=== PATIENT | female | born 1930 | race Caucasian/White ===

== ENCOUNTER 2017-11-29 19:59 | Inpatient (IN) | payer MEDICARE ==
[~2017-11-29] VITALS: Ht 152.4 cm; Wt 72.5 kg
[2017-11-29 20:36] LABS: BASOPHILS % (AUTO) 0.4 % (0.0-5.0); HEMATOCRIT 41.9 % (36-48); LYMPHOCYTES % (AUTO) 3.7 % (21.0-51.0); MEAN CORPUSCULAR HEMOGLOBIN 30.5 pg (27.0-33.0); MEAN CORPUSCULAR HGB CONC 33.8 g/dL (32.0-36.0); MEAN CORPUSCULAR VOLUME 90.3 fL (79-99); MONOCYTES % (AUTO) 1.9 % (3.0-13.0); NUCLEATED RED BLOOD CELLS 0.1 % (0.0-0.19); PLATELET COUNT (AUTO) 265 K/uL (130-400); RED BLOOD CELL COUNT(AUTO) 4.64 MIL/uL (4.00-5.50); RED CELL DISTRIBUTION WIDTH 12.7 % (11.0-15.5); WHITE BLOOD COUNT (AUTO) 16.4 K/uL (4.8-10.8)
[2017-11-29] MEDS ORDERED: ASPIRIN 325 MG TABLET ONE (20:40)
[2017-11-29] MEDS ORDERED: LEVOFLOXACIN 750 MG/D5W 150 ML 150 ML ONE (20:40)
[2017-11-29 20:47] LABS: APPEARANCE,URINE Clear (CLEAR); BILIRUBIN,URINE Negative (NEGATIVE); COLOR,URINE Yellow (YELLOW); GLUCOSE, URINE (UA) Negative (NEGATIVE); KETONES,URINE Negative (NEGATIVE); LEUKOCYTE ESTERASE ,URINE Negative (NEGATIVE); NITRATE,URINE Negative (NEGATIVE); OCCULT BLOOD,URINE Negative (NEGATIVE); PROTEIN,URINE Negative (NEGATIVE)
[2017-11-29 20:55] LABS: INR 0.98 (0.85-1.15); PARTIAL THROMBOPLASTIN TIME 26.4 SEC (26.3-35.5); PROTHROMBIN TIME 10.3 SEC (9.6-11.6)
[2017-11-29] MEDS ORDERED: IPRATROPIUM/ALBUTEROL SULFATE 3 ML SOLUTION IH ONE (21:05)
[2017-11-29 21:06] LABS: ALBUMIN 3.4 g/dL (3.5-5.0); BILIRUBIN,TOTAL 0.6 mg/dL (0.2-1.0); CREATININE 0.9 mg/dL (0.5-1.5); TOTAL PROTEIN, SERUM 7.6 g/dL (6.0-8.3)
[2017-11-29 21:09] LABS: POTASSIUM 2.6 mmol/L (3.5-5.1)
[2017-11-29 21:31] LABS: CREATINE KINASE MB 2.1 ng/mL (0.5-3.6)
[2017-11-29] MEDS ORDERED: POTASSIUM CHLORIDE 10% ELIXIR 20 MEQ/15 ML UDCUP ONE (21:40)
[2017-11-29 22:30] VITALS: BP 126/56
[2017-11-29] MEDS ORDERED: ACETAMINOPHEN 325 MG TAB PO PRN (23:00)
[2017-11-29] MEDS ORDERED: ONDANSETRON HCL MDV 20ML 2 MG/ML VIAL IV PRN (23:00)
[2017-11-29] MEDS ORDERED: POTASSIUM CHLORIDE 20MEQ/100ML 100 ML IV PRN (23:00)
[2017-11-29] MEDS ORDERED: LIDOCAINE HCL-MPF 1% 2ML VIAL IVP PRN (23:00)
[2017-11-29] MEDS ORDERED: POTASSIUM CHLORIDE 10% ELIXIR 20 MEQ/15 ML UDCUP PO PRN (23:00)
[2017-11-29] MEDS: LEVOFLOXACIN 500 MG/D5W 100 ML 100 ML IV SCH (23:00)
[2017-11-30] MEDS ORDERED: OMEP40CA37 PO (00:24)
[2017-11-30] MEDS ORDERED: CALC-866 PO (00:24)
[2017-11-30] MEDS ORDERED: PRAV40TA3 PO (00:24)
[2017-11-30] MEDS ORDERED: DULO60CA63 PO (00:24)
[2017-11-30] MEDS ORDERED: AMLO5TAB7 PO (00:24)
[2017-11-30] MEDS ORDERED: CHLO25TA3 PO (00:24)
[2017-11-30] MEDS ORDERED: POTA10TA14 PO (00:24)
[2017-11-30] MEDS: SODIUM CHLORIDE 0.9% 1000ML 1,000 ML IV SCH ×4 (01:21→22:45)
[2017-11-30] MEDS: MAGNESIUM 2GM PREMIX 50ML 50 ML IV PRN (01:21)
[2017-11-30] MEDS: METHYLPREDNISOLONE SOD SUCC 125MG/2ML VIAL IVP SCH ×2 (02:04→09:51)
[2017-11-30] MEDS ORDERED: SODIUM CHLORIDE 3% FOR INHALATION 4 ML/AMP VIAL.NEB IH ONE (02:21)
[2017-11-30] MEDS: IPRATROPIUM/ALBUTEROL SULFATE 3 ML SOLUTION IH SCH ×6 (02:30→21:41)
[2017-11-30 04:00] VITALS: BP 139/64
[2017-11-30 05:46] LABS: ALBUMIN 2.7 g/dL (3.5-5.0); BILIRUBIN,TOTAL 0.8 mg/dL (0.2-1.0); MAGNESIUM 2.1 mg/dL (1.80-2.40); POTASSIUM 3.5 mmol/L (3.5-5.1); TOTAL PROTEIN, SERUM 6.5 g/dL (6.0-8.3)
[2017-11-30 05:50] LABS: HEMATOCRIT 36.7 % (36-48); MEAN CORPUSCULAR HEMOGLOBIN 30.2 pg (27.0-33.0); MEAN CORPUSCULAR HGB CONC 33.4 g/dL (32.0-36.0); MEAN CORPUSCULAR VOLUME 90.3 fL (79-99); PLATELET COUNT (AUTO) 222 K/uL (130-400); RED BLOOD CELL COUNT(AUTO) 4.07 MIL/uL (4.00-5.50); WHITE BLOOD COUNT (AUTO) 23.4 K/uL (4.8-10.8)
[2017-11-30 06:17] LABS: BAND NEUTROPHILS % (MANUAL) 26 % (0-2); LYMPHOCYTES % (MANUAL) 1 % (22-44); MAN.DIFF COMMENT-IMPRESSION MANUAL DIFFERENTIAL; METAMYELOCYTES % 2 % (0-0); MONOCYTES % (MANUAL) 3 % (2-9); MYELOCYTES % 1 % (0-0); PLATELET MORPHOLOGY COMMENT ADEQUATE; SEGMENTED NEUTROPHILS % 67 % (40-70)
[2017-11-30 08:00] VITALS: BP 125/61
[2017-11-30] MEDS: BACITRACIN 3.5 GM TUBE OS SCH ×3 (09:00→22:51)
[2017-11-30] MEDS: ENOXAPARIN SODIUM 40 MG/0.4 ML SYRINGE SQ SCH (09:51)
[2017-11-30] MEDS: PANTOPRAZOLE SODIUM 40 MG TABLET.DR PO SCH (09:51)
[2017-11-30] MEDS ORDERED: IOHEXOL-350 75 ML VIAL IV ONE (10:43)
[2017-11-30 12:00] VITALS: BP 144/81
[2017-11-30] MEDS: POTASSIUM CHLORIDE 20 MEQ ERTAB PO PRN ×2 (12:42→22:45)
[2017-11-30 16:00] VITALS: BP 152/71
[2017-11-30] MEDS: METOCLOPRAMIDE 5 MG TABLET PO SCH (16:46)
[2017-11-30 20:00] VITALS: BP 132/77
[2017-11-30] MEDS: POTASSIUM CHLORIDE 10 MEQ/TAB.SA PO SCH (20:46)
[2017-11-30] MEDS ORDERED: PREDNISONE 20 MG TABLET PO SCH (21:00)
[2017-11-30] MEDS ORDERED: PNEUMOCOCCAL VACCINE POLYVALENT 0.5 ML/VIAL [PPV] IM ONE (22:00)
[2017-11-30] MEDS: LEVOFLOXACIN 500 MG/D5W 100 ML 100 ML IV SCH (22:45)
[2017-11-30 23:15] VITALS: BP 152/73
[2017-12-01] MEDS: IPRATROPIUM/ALBUTEROL SULFATE 3 ML SOLUTION IH SCH ×5 (02:15→23:15)
[2017-12-01] MEDS: SODIUM CHLORIDE 0.9% 1000ML 1,000 ML IV SCH (03:52)
[2017-12-01 04:00] VITALS: BP 157/75
[2017-12-01 04:38] LABS: BASOPHILS % (AUTO) 0.6 % (0.0-5.0); HEMATOCRIT 34.6 % (36-48); LYMPHOCYTES % (AUTO) 2.4 % (21.0-51.0); MEAN CORPUSCULAR HEMOGLOBIN 30.3 pg (27.0-33.0); MEAN CORPUSCULAR HGB CONC 33.7 g/dL (32.0-36.0); MEAN CORPUSCULAR VOLUME 90.1 fL (79-99); MONOCYTES % (AUTO) 2.6 % (3.0-13.0); NEUTROPHILS % (AUTO) 94.4 % (40.0-77.0); PLATELET COUNT (AUTO) 229 K/uL (130-400); RED BLOOD CELL COUNT(AUTO) 3.85 MIL/uL (4.00-5.50); RED CELL DISTRIBUTION WIDTH 13.1 % (11.0-15.5); WHITE BLOOD COUNT (AUTO) 20.7 K/uL (4.8-10.8)
[2017-12-01 04:59] LABS: ALBUMIN 2.7 g/dL (3.5-5.0); BILIRUBIN,TOTAL 0.3 mg/dL (0.2-1.0); MAGNESIUM 1.8 mg/dL (1.80-2.40); TOTAL PROTEIN, SERUM 6.7 g/dL (6.0-8.3)
[2017-12-01 05:04] LABS: POTASSIUM 2.8 mmol/L (3.5-5.1)
[2017-12-01] MEDS: MAGNESIUM 2GM PREMIX 50ML 50 ML IV PRN (05:36)
[2017-12-01] MEDS: POTASSIUM CHLORIDE 20 MEQ ERTAB PO PRN ×4 (05:37→23:12)
[2017-12-01] MEDS: METOCLOPRAMIDE 5 MG TABLET PO SCH ×3 (05:37→17:08)
[2017-12-01] MEDS ORDERED: PNEUMOCOCCAL VACCINE POLYVALENT 0.5 ML/VIAL [PPV] IM SCH (06:45)
[2017-12-01 07:00] VITALS: BP 151/113
[2017-12-01] MEDS: CHOLECALCIFEROL 5000 UNIT PO SCH (09:00)
[2017-12-01] MEDS: AMLODIPINE BESYLATE 5 MG TAB PO SCH (10:49)
[2017-12-01] MEDS: HYDROCHLOROTHIAZIDE 25 MG TABLET PO SCH (10:49)
[2017-12-01] MEDS: DULOXETINE HCL 30 MG CAP PO SCH (10:49)
[2017-12-01] MEDS: PANTOPRAZOLE SODIUM 40 MG TABLET.DR PO SCH (10:49)
[2017-12-01] MEDS: ENOXAPARIN SODIUM 40 MG/0.4 ML SYRINGE SQ SCH (10:50)
[2017-12-01] MEDS: POTASSIUM CHLORIDE 10 MEQ/TAB.SA PO SCH ×2 (10:53→20:53)
[2017-12-01] MEDS: SIMVASTATIN 20 MG TABLET PO SCH (10:53)
[2017-12-01 11:14] VITALS: BP 152/63
[2017-12-01] MEDS: BACITRACIN 3.5 GM TUBE OS SCH ×2 (12:43→20:53)
[2017-12-01 15:34] VITALS: BP 176/89
[2017-12-01] MEDS ORDERED: PNEUMOCOCCAL VACCINE POLYVALENT 0.5 ML/VIAL [PPV] ONE (17:44)
[2017-12-01] MEDS ORDERED: ZOLPIDEM TARTRATE 5 MG TAB PO PRN (19:45)
[2017-12-01 19:51] VITALS: BP 135/67
[2017-12-01] MEDS ORDERED: PREDNISONE 20 MG TABLET PO SCH (21:00)
[2017-12-01] MEDS: LEVOFLOXACIN 500 MG/D5W 100 ML 100 ML IV SCH (23:11)
[2017-12-01 23:33] VITALS: BP 164/74
[2017-12-02 03:32] VITALS: BP 156/77
[2017-12-02] MEDS: POTASSIUM CHLORIDE 20 MEQ ERTAB PO PRN (04:41)
[2017-12-02 05:19] LABS: BASOPHILS % (AUTO) 0.2 % (0.0-5.0); HEMATOCRIT 33.9 % (36-48); LYMPHOCYTES % (AUTO) 13.2 % (21.0-51.0); MEAN CORPUSCULAR HEMOGLOBIN 29.6 pg (27.0-33.0); MEAN CORPUSCULAR HGB CONC 32.7 g/dL (32.0-36.0); MEAN CORPUSCULAR VOLUME 90.6 fL (79-99); MONOCYTES % (AUTO) 4.9 % (3.0-13.0); NEUTROPHILS % (AUTO) 81.7 % (40.0-77.0); PLATELET COUNT (AUTO) 205 K/uL (130-400); RED BLOOD CELL COUNT(AUTO) 3.75 MIL/uL (4.00-5.50); RED CELL DISTRIBUTION WIDTH 13.3 % (11.0-15.5); WHITE BLOOD COUNT (AUTO) 13.8 K/uL (4.8-10.8)
[2017-12-02 05:48] LABS: ALBUMIN 2.5 g/dL (3.5-5.0); BILIRUBIN,TOTAL 0.3 mg/dL (0.2-1.0); CREATININE 0.9 mg/dL (0.5-1.5); MAGNESIUM 1.8 mg/dL (1.80-2.40); POTASSIUM 4.2 mmol/L (3.5-5.1); TOTAL PROTEIN, SERUM 6.1 g/dL (6.0-8.3)
[2017-12-02] MEDS: MAGNESIUM 2GM PREMIX 50ML 50 ML IV PRN (06:02)
[2017-12-02] MEDS: METOCLOPRAMIDE 5 MG TABLET PO SCH ×2 (06:02→12:18)
[2017-12-02] MEDS: IPRATROPIUM/ALBUTEROL SULFATE 3 ML SOLUTION IH SCH ×2 (06:46→11:00)
[2017-12-02 07:00] VITALS: BP 146/77
[2017-12-02] MEDS: SIMVASTATIN 20 MG TABLET PO SCH (08:10)
[2017-12-02] MEDS: AMLODIPINE BESYLATE 5 MG TAB PO SCH (08:10)
[2017-12-02] MEDS: DULOXETINE HCL 30 MG CAP PO SCH (08:10)
[2017-12-02] MEDS: PANTOPRAZOLE SODIUM 40 MG TABLET.DR PO SCH (08:10)
[2017-12-02] MEDS: HYDROCHLOROTHIAZIDE 25 MG TABLET PO SCH (08:10)
[2017-12-02] MEDS: POTASSIUM CHLORIDE 10 MEQ/TAB.SA PO SCH (08:11)
[2017-12-02] MEDS: BACITRACIN 3.5 GM TUBE OS SCH (08:17)
[2017-12-02] MEDS ORDERED: PREDNISONE 10 MG TABLET PO SCH (09:00)
[2017-12-02] MEDS: CHOLECALCIFEROL 5000 UNIT PO SCH (09:00)
[2017-12-02] MEDS ORDERED: LEVO500T2 PO (10:07)
[2017-12-02] MEDS ORDERED: PRED10TA3 PO (10:08)
[2017-12-02] MEDS: ENOXAPARIN SODIUM 40 MG/0.4 ML SYRINGE SQ SCH (11:08)
== END 2017-12-02 12:25 | disposition home or self-care (01) | DRG 871 ==
LOC: EDH 19:59 → EDHIP 20:51 → 3CH 22:39
PROVIDERS: ADMIT Internal Medicine; ATTEND Internal Medicine
PROC: 3E0234Z Introduction of Serum, Toxoid and Vaccine into Muscle, Percutaneous Approach (ICD-10-PCS; principal; 2017-11-29)
PROC: 3E0234Z Introduction of Serum, Toxoid and Vaccine into Muscle, Percutaneous Approach (ICD-10-PCS; 2017-11-29)
DX: A41.9 Sepsis, unspecified organism (principal); J69.0 Pneumonitis due to inhalation of food and vomit; J44.0 Chronic obstructive pulmonary disease with (acute) lower respiratory infection; E44.0 Moderate protein-calorie malnutrition; E87.2 Acidosis; J96.10 Chronic respiratory failure, unspecified whether with hypoxia or hypercapnia; R65.20 Severe sepsis without septic shock; E66.9 Obesity, unspecified; E83.42 Hypomagnesemia; E87.6 Hypokalemia; F32.9 Major depressive disorder, single episode, unspecified; H00.016 Hordeolum externum left eye, unspecified eyelid; I10 Essential (primary) hypertension; K21.9 Gastro-esophageal reflux disease without esophagitis; R13.10 Dysphagia, unspecified; M95.4 Acquired deformity of chest and rib; Z68.31 Body mass index [BMI] 31.0-31.9, adult; Z99.81 Dependence on supplemental oxygen; Z23 Encounter for immunization; Z82.3 Family history of stroke; Z80.1 Family history of malignant neoplasm of trachea, bronchus and lung; Z80.8 Family history of malignant neoplasm of other organs or systems; Z84.1 Family history of disorders of kidney and ureter
CPT/HCPCS: 36415; 71045; 71270; 80053; 81003; 82550; 82553; 83605; 83735; 83874; 83880; 84132; 84484; 85025; 85610; 85651; 85730; 87040; 87088; 90732; 93005; 94640; 94664; 94760; G0008; G0009; J1650; J1956; J2930; J3475; J3480; J3490; J7030; J7512; Q2038; Q9967